=== PATIENT | female | born 1990 ===

== ENCOUNTER 2022-08-11 11:19 | Outpatient (REF) | payer BC, SELFPAY ==
[2022-08-11 12:42] LABS: Influenza A PCR NEGATIVE (Negative); Influenza B PCR NEGATIVE (Negative); Resp Syncy Virus RNA Qual PCR NEGATIVE (Negative); SARS COV2 PCR INHOUSE NEGATIVE (Negative)
== END 2022-08-11 11:20 | disposition home or self-care (01) ==
LOC: HO.LNP 11:19
PROVIDERS: Visit Provider Internal Medicine
DX: Z20.822 Contact with and (suspected) exposure to COVID-19 (principal); R09.89 Other specified symptoms and signs involving the circulatory and respiratory systems
CPT/HCPCS: 0241U

== ENCOUNTER 2022-10-19 23:16 | Emergency (ER) | payer BC, SELFPAY ==
--- NOTE | ~2022-10-19 | XR_ITS ---
Indication: Injury EXAMINATION: Right foot, right ankle. 2. Detail views of the right ankle does not demonstrate acute fracture or dislocation. Foreign bodies overlie the region laterally 3 views of the right foot does not demonstrate evidence for an acute fracture or dislocation. Foreign bodies are noted. These may be overlying the patient. Correlation recommended clinically I cannot exclude that these lie within the soft tissue laterally and inferiorly XR/XR ankle RT min 3V IMPRESSION: No acute fracture or dislocation of the right ankle. No acute fracture or dislocation of the right foot. Foreign bodies are noted.
--- NOTE | ~2022-10-19 | XR_ITS ---
Indication: Injury EXAMINATION: Right foot, right ankle. 2. Detail views of the right ankle does not demonstrate acute fracture or dislocation. Foreign bodies overlie the region laterally 3 views of the right foot does not demonstrate evidence for an acute fracture or dislocation. Foreign bodies are noted. These may be overlying the patient. Correlation recommended clinically I cannot exclude that these lie within the soft tissue laterally and inferiorly XR/XR foot RT min 3V IMPRESSION: No acute fracture or dislocation of the right ankle. No acute fracture or dislocation of the right foot. Foreign bodies are noted.
[2022-10-19 23:30] VITALS: BP 129/69; PULSE 78; RESP 18; TEMP 36.2; O2SAT 95; BMI 35.7
[2022-10-19] MEDS: Acetaminophen 325 MG TABLET 650 MG PO (23:59)
[2022-10-19] MEDS: Ondansetron ODT 4 MG TAB.RAPDIS TRANSLINGU (23:59)
--- OUTSIDE RECORDS SUMMARY | 2022-10-20 00:47 | XMS_ITS | Continuity of Care Document ---
Author Name Unknown Organization [facility] Address [address] [place] [address]- Care Team Providers Care Computer Aided Design Designer Name Role Phone Gino PROPERTY DISPOSAL MANAGER, Tierney M Primary Care Physician Encounter [facility] Date(s): 07/18/22 - [facility] [place] [address]- Attending Physician: Not on Staff, Attending MD Allergies, Adverse Reactions, Alerts Substance Reaction Severity Status Ceclor Active Immunizations Given and Recorded Vaccine Date Status Refusal Reason influenza virus vaccine, inactivated 04/28/11 Kishan rded Human Papillomavirus Vaccine 11/06/06 Recorded Human Papillomavirus Vaccine 04/10/06 Recorded tetanus-diphtheria toxoids (Td) 11/30/01 Recorded Varicella Virus Vaccine 10/05/98 Recorded hepatitis B pediatric vaccine 05/28/97 Recorded hepatitis B pediatric vaccine 03/18/96 Recorded hepatitis B pediatric vaccine 02/14/96 Recorded Measles/Mumps/Rubella Virus Vaccine 09/16/94 Recor ded Measles/Mumps/Rubella Virus Vaccine 12/01/90 Recor ded Polio Vaccine, Live (oldterm) 09/16/94 Recorded Polio Vaccine, Live (oldterm) 03/05/91 Recorded Polio Vaccine, Live (oldterm) 01/03/90 Recorded Polio Vaccine, Live (oldterm) 89 Recorded diphtheria/tetanus/pertussis, acel(DTaP) 09/16/94 Recorded Diphth/Pertussis, Whl Cell/Tet(oldterm) 03/05/91 R ecorded Diphth/Pertussis, Whl Cell/Tet(oldterm) 02/25/90 R ecorded Diphth/Pertussis, Whl Cell/Tet(oldterm) 01/03/90 R ecorded Diphth/Pertussis, Whl Cell/Tet(oldterm) 89 R ecorded Haemophilus B conjugate (HbOC) vaccine 12/01/90 Re corded Haemophilus B conjugate (HbOC) vaccine 09/07/90 Re corded Haemophilus B conjugate (HbOC) vaccine 06/05/90 Re corded Problem List Condition Confirmation Course Effective Dates Status Health St atus Informant Shoulder bursitis Confirmed Active Chronic low back pain Confirmed Active Pain in right knee Confirmed Active PTSD (post-traumatic stress disorder) 1 Confirmed Active Severe obesity (BMI 35.0-39.9) with comorbidity Confirmed Active 1Was in the and deployed to [place] in the past. Social History Social History Type Response Smoking Status Never smoker entered on: 05/12/15 Sex Patient Care team information Care Team Personnel Name: Tierney Christian NP Position: S PCO Associate Professional Member Role: PCP Address: Address: [address] [place] [address]- Care Team Related Persons Name: EMEKA SHELBY Address: [address] [place] [address] Name: KELLEY SHELBY Address: [address] [place] [address] Name: KAYLA HANLEY
--- OUTSIDE RECORDS SUMMARY | 2022-10-20 00:48 | XMS_ITS | Continuity of Care Document ---
Author Name Unknown Organization [facility] Address [address] [place], [place] [id number]- Care Team Providers Care Chain Saw Operator Name Role Phone Gino ENGINE REPAIRER PRODUCTION, Tierney M Primary Care Physician Encounter [facility] Date(s): 08/05/22 - 09/04/22 [facility] [address] [address]- Attending Physician: Aurelio Hill Admitting Physician: AdmAurelio gunter Referring Physician: Admtr, ArJacobo Allergies, Adverse Reactions, Alerts Substance Reaction Severity [...] Associate Professional Member Role: PCP Address: Address: [address] [place] [address]- Care Team Related Persons Name: EMEKA SHELBY Address: [address] [place] [address] Name: KELLEY SHELBY Address: [address] [place] [address] Name: KAYLA HANLEY
== END 2022-10-20 01:05 | disposition left against medical advice (07) ==
PROVIDERS: Emergency Provider Emergency Medicine
DX: M79.671 Pain in right foot (principal); M25.571 Pain in right ankle and joints of right foot
CPT/HCPCS: 73610; 73630; 99282; 99283

== ENCOUNTER 2022-10-20 09:44 | Emergency (ER) | payer BC, SELFPAY ==
--- NOTE | ~2022-10-20 | XR_ITS ---
EXAMINATION: XR FOOT AND CALCANEUS, RIGHT CLINICAL INFORMATION: Localized foreign body. COMPARISON: Right foot radiographs dated 10/19/2022. TECHNIQUE: AP, lateral, and oblique views of the right foot and calcaneus. FINDINGS: A thin radiopaque density is seen overlying of the lateral plantar soft tissues measuring approximately 1.9 x 1.0 cm. It is located approximately 1.4 cm deep to the plantar skin surface and 1.2 cm deep to the lateral surface. There is no acute fracture or dislocation. The joint spaces are unremarkable. The tarsal bones are normally aligned. XR/XR calcaneus RT min 2V IMPRESSION: Thin radiopaque body overlying of the lateral plantar soft tissues of the right foot as detailed above. No acute underlying osseous abnormality.
--- NOTE | ~2022-10-20 | XR_ITS ---
EXAMINATION: XR FOOT AND CALCANEUS, RIGHT CLINICAL INFORMATION: Localized foreign body. COMPARISON: Right foot radiographs dated 10/19/2022. TECHNIQUE: AP, lateral, and oblique views of the right foot and calcaneus. FINDINGS: A thin radiopaque density is seen overlying of the lateral plantar soft tissues measuring approximately 1.9 x 1.0 cm. It is located approximately 1.4 cm deep to the plantar skin surface and 1.2 cm deep to the lateral surface. There is no acute fracture or dislocation. The joint spaces are unremarkable. The tarsal bones are normally aligned. XR/XR foot RT min 3V IMPRESSION: Thin radiopaque body overlying of the lateral plantar soft tissues of the right foot as detailed above. No acute underlying osseous abnormality.
[2022-10-20 10:15] VITALS: BP 120/72; PULSE 75; RESP 18; TEMP 36.9; O2SAT 97; BMI 36.5
[2022-10-20] MEDS: Diphth,Pertus(ACell),Tet Adult 0.5 ML SYRINGE IM (12:37)
[2022-10-20] MEDS: Lidocaine HCl 1 % MPF 5 ML VIAL SUBCUT ×2 (12:39→12:40)
[2022-10-20] MEDS: Ondansetron ODT 4 MG TAB.RAPDIS TRANSLINGU (12:45)
[2022-10-20] MEDS: LORazepam 1 MG TABLET PO (13:15)
[2022-10-20 15:43] VITALS: BP 138/71; PULSE 72; RESP 16; TEMP 36.6; O2SAT 99
[2022-10-20] MEDS: LORazepam 2 MG/ML VIAL 1 MG IM (16:03)
[2022-10-20] MEDS: Lidocaine HCl 1 % MPF 30 ML VIAL SUBCUT (16:04)
--- NOTE | 2022-10-20 17:56 | ED.WOUNDLAC ---
HPI - Wound/Laceration General Chief Complaint: Wound/Laceration Stated Complaint: glass in r foot Time Seen by Provider: 10/20/22 11:31 History of Present Illness HPI narrative: Patient complains of lacerations to right foot sustained about 14 hours ago when she accidentally kicked through a glass window pain, she believes there is a foreign body in the foot from the glass, denies any other injury, no numbness no weakness Related Data Home Medications Medication Instructions Recorded Confirmed hydroxyzine HCl 25 mg tablet 25 mg PO TID PRN anxiety 08/11/22 Previous Rx's Medication Instructions Recorded methylprednisolone 4 mg tablets in See Rx Instructions PO PER PKG DIR 03/17/22 a dose pack (Medrol (Adebayo)) 6 days #21 ea tramadol 50 mg tablet 50 mg PO BID pain 7 days #14 tabs 03/17/22 azithromycin 250 mg tablet 250 mg PO ONCE 5 days #6 tabs 08/11/22 clindamycin HCl 300 mg capsule 300 mg PO Q6H 5 days #20 caps 10/20/22 ibuprofen 600 mg tablet 600 mg PO Q6H PRN pain #20 tabs 10/20/22 oxycodone 5 mg tablet 5 mg PO Q6H PRN pain #14 tabs 10/20/22 oxycodone 5 mg tablet 5 mg PO Q6H PRN pain #14 tabs 10/20/22 Allergies Allergy/AdvReac Type Severity Reaction Status Date / Time cefaclor [From Ceclor] AdvReac Mild Hives Verified 10/19/22 23:30 [facility] Past Medical History Source: nursing notes reviewed Social History Social History Patient Tobacco Use Status: Never used Tobacco Physical Exam Vital Signs: Vital Signs: Last Vital Signs Temp 97.9 F 10/20/22 15:43 Pulse 72 10/20/22 15:43 Resp 16 10/20/22 15:43 BP 138/71 10/20/22 15:43 Pulse Ox 99 10/20/22 15:43 O2 Del Method Room Air 10/20/22 15:43 BMI result Body Mass Index 36.5 General appearance no acute distress Head is normocephalic atraumatic Neck is supple Respiratory no distress Extremities full range of motion x4 Right foot had a laceration on the bottom of the foot, was neurovascular intact distal a laceration was about 1.5 cm, there was no foreign body palpable, all tendon function distal was normal Course Course Course Narrative: Patient received a tetanus shot X-ray did show the foreign body in the heel Procedure note the area was cleansed with Betadine Area was numbed with lidocaine 1% the pre-existing laceration was explored and I could not find the piece a glass I extended the laceration with an 11 blade to create a flap and explored and could not find the foreign body Dr. Santo came over with the ultrasound and was able to locate and remove the foreign body and a piece of glass same shape is what was seen on x-ray was removed I sutured up the flap lack that we had created with 5 0 nylon sutures, dressing was applied and patient ambulated from the emergency department with foreign body removed Medications Administered Discontinued Medications Generic Name Dose Route Start Last Admin Trade Name Freq PRN Reason Stop Dose Admin Clindamycin HCl 300 mg 10/20/22 18:02 10/20/22 18:12 Clindamycin Hcl 300 Mg Capsule PO 10/20/22 18:03 300 mg ONCE ONE Administration Diphtheria/Tetanus/Acell Pertussis 0.5 ml 10/20/22 12:26 10/20/22 12:37 Diphth,Pertus(Acell),Tet Adult 0.5 Ml Syringe IM 10/20/22 12:27 0.5 ml .ONCE ONE Administration Ibuprofen 600 mg 10/20/22 18:00 10/20/22 18:12 Ibuprofen 600 Mg Tablet PO 10/20/22 18:01 600 mg ONCE ONE Administration Lidocaine HCl 5 ml 10/20/22 12:24 10/20/22 12:39 Lidocaine Hcl 1 % Mpf 5 Ml Vial SUBCUT 10/20/22 12:25 5 ml ONCE ONE Administration Lidocaine HCl 5 ml 10/20/22 12:25 10/20/22 12:40 Lidocaine Hcl 1 % Mpf 5 Ml Vial SUBCUT 10/20/22 12:26 5 ml ONCE ONE Administration Lidocaine HCl 30 ml 10/20/22 14:27 10/20/22 16:04 Lidocaine Hcl 1 % Mpf 30 Ml Vial SUBCUT 10/20/22 14:28 30 ml ONCE ONE Administration Protocol Lorazepam 1 mg 10/20/22 12:51 10/20/22 13:15 Lorazepam 1 Mg Tablet PO 10/20/22 12:52 1 mg ONCE ONE Administration Lorazepam 1 mg 10/20/22 15:51 10/20/22 16:03 Lorazepam 2 Mg/Ml Vial IM 10/20/22 15:52 1 mg STAT STA Administration Ondansetron HCl 4 mg 10/20/22 12:41 10/20/22 12:45 Ondansetron Odt 4 Mg Tab.Rapdis TRANSLINGU 10/20/22 12:42 4 mg ONCE ONE Administration Oxycodone HCl 5 mg 10/20/22 18:00 10/20/22 18:11 Oxycodone Hcl Immed Release 5 Mg Tablet PO 10/20/22 18:01 5 mg ONCE ONE Administration Medical Decision Making Attestation Attending Attestation: 32-year-old female presents with foreign body retention and right foot. Reviewed previous imaging and repeated imaging today. She was neurovascularly intact. Paste ultrasound directly visualized obtained foreign body. He did require an incision using 11 blade scalpel. Patient did have moderate amount of pain even despite its local anesthesia. She was neurovascular intact following the procedure. She will be treated with prophylactic antibiotics as well. Procedures Foreign Body Removal Time Out Performed: yes Site: right and foot Description of foreign body: other (glass) Sedation/Analgesia: other (Ativan) Technique: incision made to facilitate removal Confirmed by:: direct visualization and ultrasound Complications: pain Post-procedure exam: awake, alert Neurovascular: normal distal pulse, normal capillary fill, distal light touch sensation intact, distal motor function normal, no signs of compartment syndrome and no change from pre-procedure Discharge Plan Discharge Clinical Impression: Acute foreign body of right foot Patient Disposition: Home, Self-Care Additional Instructions: Dr. Santo was able to remove the foreign body piece of glass from her foot I placed 4 stitches which will need to be removed in 10 days We are using clindamycin antibiotic to help prevent infection Wash the wounds gently every day and cover with dry bandage You got a tetanus shot Follow with your doctor early next week for wound check Return any time for redness swelling discharge from wound pain any signs of infection any worse condition or any concerns Prescriptions: New oxycodone 5 mg tablet 5 mg PO Q6H PRN (Reason: pain) Qty: 14 0RF Rx Instructions: Partial Fill upon patient request. ibuprofen 600 mg tablet 600 mg PO Q6H PRN (Reason: pain) Qty: 20 0RF clindamycin HCl 300 mg capsule 300 mg PO Q6H 5 Days Qty: 20 0RF oxycodone 5 mg tablet 5 mg PO Q6H PRN (Reason: pain) Qty: 14 0RF Rx Instructions: Partial Fill upon patient request. No Action methylprednisolone [Medrol (Adebayo)] 4 mg tablets,dose pack See Rx Instructions PO PER PKG DIR 6 Days Qty: 21 0RF Rx Instructions: PO PER PKG DIR tramadol 50 mg tablet 50 mg PO BID 7 Days Qty: 14 0RF hydroxyzine HCl 25 mg tablet 25 mg PO TID PRN (Reason: anxiety) azithromycin 250 mg tablet 250 mg PO ONCE 5 Days Qty: 6 0RF Rx Instructions: Take 2 tablets today then 1 daily Stand Alone Forms: Work/School Release Interventions: ED Discharge Assessment Last Done: 10/20/22 18:16 Discharge Date/Time: 10/20/22 18:17
[2022-10-20] MEDS: oxyCODONE HCl Immed Release 5 MG TABLET PO (18:11)
[2022-10-20] MEDS: Clindamycin HCL 300 MG CAPSULE PO (18:12)
[2022-10-20] MEDS: Ibuprofen 600 MG TABLET PO (18:12)
== END 2022-10-20 18:17 | disposition home or self-care (01) ==
PROVIDERS: Emergency Provider Emergency Medicine
DX: S90.851A Superficial foreign body, right foot, initial encounter (principal); S90.811A Abrasion, right foot, initial encounter; M79.5 Residual foreign body in soft tissue; W25.XXXA Contact with sharp glass, initial encounter; W45.8XXA Other foreign body or object entering through skin, initial encounter; Y93.9 Activity, unspecified; Y92.9 Unspecified place or not applicable; Y99.9 Unspecified external cause status; Z79.899 Other long term (current) drug therapy; Z23 Encounter for immunization
CPT/HCPCS: 28192; 73630; 73650; 90471; 90715; 96372; 99284; J2060

== ENCOUNTER 2023-11-02 08:10 | Outpatient (AMB) | payer BC, SELFPAY ==
--- OUTSIDE RECORDS SUMMARY | 2023-11-02 08:11 | XMS_ITS | Continuity of Care Document ---
Author Organization [facility] [employer] [facility] Address [address] [place] [id number]- Care Team Providers Care Machine Tool Electrician Name Role Phone Walker JORDAN, Margaret Zamora Primary Care Physici an Encounter [facility] Date(s): 08/09/23 - 08/16/23 [facility] [address] [place] [address]- Attending Physician: Tammie Collins MD Allergies, Adverse Reactions, Alerts Substance Reaction Severity Status Ceclor Active Immunizations Given and Recorded Vaccine Date Status Refusal Reason tetanus/diphtheria/pertussis, acel(Tdap) 1 10/20/22 Recorded influenza virus vaccine, inactivated 04/28/11 Kishan rded [...] B conjugate (HbOC) vaccine 06/05/90 Re corded 1Result Comment: [facility] Medications buPROPion 150 mg/12 hours (SR) oral tablet, extended release 1 tablet = 150 mg, By Mouth, 2 times a day, # 60 tablet, 5 Refills, Maintenance, 07/13/23 7:50:00 EST, ER Tablet, [id number], Partial fill upon patient request if the prescription is for a schedule II opioid drug., 172.5, cm, 01/26/23 9:59:00... Start Date: 07/13/23 Status: Ordered busPIRone 10 mg oral tablet 10 mg, 1, tablet, By Mouth, 2 times a day, # 60 tablet, Refills 5, Tot. Refills 5, Maintenance, 07/13/23 7:54:00 EST, Route to Pharmacy Electronically, [id number], Partial fill upon patient request if the prescription is for a schedule II opio... Start Date: 07/13/23 Status: Ordered ondansetron 4 mg oral tablet 1 tablet = 4 mg, By Mouth, Every 8 hours, # 12 tablet, 0 Refills, Maintenance, 01/06/23 16:51:00 EDT, Tablet, [id number], Partial fill upon patient request if the prescription is for a schedule II opioid drug., 172.5, cm, 11/01/22 13:52:00 EDT... Start Date: 01/06/23 Status: Ordered Problem List Condition Confirmation Course Effective Dates Status Health St atus Informant Shoulder bursitis Confirmed Active Chronic low back pain Confirmed Active KINSEY (generalized anxiety disorder) Confirmed Active Obese class I Confirmed Active Pain in right knee Confirmed Active PTSD (post-traumatic stress disorder) 1 Confirmed Active Severe major depression without psychotic features Confirmed Active 1Was in the and deployed to [place] in the past. Vital Signs Most recent to oldest [Reference Range]: 1 Height 172.5 cm (08/09/23 4:21 PM) Weight 101.8 kg (08/09/23 4:21 PM) Oxygen Saturation [94-100 %] 100 % (08/09/23 4: PM) Pulse Rate [55-90 bpm] 67 bpm (08/09/23 4:21 PM) Body Mass Index [18.5-24.99 kg/m2] 34.21 kg/m2 *>HHI* (08/09/23 4:21 PM) Blood Pressure [90-138/55-84 mm Hg] 123/ 75mm Hg (08/09/23 4:21 PM) Respiratory Rate [16-30 br/min] 16 br/mi n (08/09/23 4:21 PM) Temperature [96.8-100.4 DegF] 97.7 DegF (08/09/23 4:21 PM) Mode of Delivery (Oxygen) Room air (08/09/23 4:21 PM) Blood pressure sites Arm, left (08/09/23 4:21 PM) Temperature Route Temporal (08/09/23 4: PM) Weight Obtained Via Standing scale (08/09/23 4:21 PM) Social History Social History Type Response Smoking Status Never smoker entered on: 05/12/15 Sex Note * Erin Hester: PERFORM, SIGN, VERIFY Event Display: Patient Education/Instruction Authored Date: [id number] [facility] *BMP [facility] Ad[facility] Med Bltn Clinical Summary Name NUNO SANDOVAL Age 32 Years 1990 PCP Walker SAVE ALL OPERATOR, Margaret [id number] Visit Date 08/09/2023 15:59:00 Additional Instructions: Scheduled Appointments?? Future Appointments ?*BMP??Quab??Adlt??Med??Bltn [address],??[place],??[address] ?Phone:??--?Fax:??-- ?Appt. Date:??10/12/2023?7:40 AM ?Scheduled Provider:??Vicente Funk MD Follow-Up Instructions ?? Diagnosis Medications: Please continue your medications until treatment is completed or stopped by your provider. Discuss any questions related to medications with your provider. Medications to Continue with No Changes These medications were not printed or sent to your pharmacy BuPROpion (buPROPion 150 mg/12 hours (SR) oral tablet, extended release) 1 tab(s) Oral twice a day.Refills: 5. Next Dose: BusPIRone (busPIRone 10 mg oral tablet) 1 tab(s) Oral twice a day. Refills: 5. Next Dose: Ondansetron (ondansetron 4 mg oral tablet) 1 tab(s) Oral every 8 hours. Refills: 0. Next Dose: Zolpidem (zolpidem 5 mg oral tablet) 1 tab(s) Oral Daily at Bedtime as needed as needed for insomnia. Refills: 1. Next Dose: Allergy Info:?? Ceclor Medications Given This Visit Future Orders ?No future orders Future Orders ?No future orders Vital Signs Height 172.5 cm Weight 101.8 kg BMI 34.21 kg/m2 Blood Pressure 123 mm Hg/75 mm Hg Temperature 97.7 DegF Pulse Rate 67 bpm Respiratory Rate 16 br/min 02 Sat Mode of Delivery 100 %/Room air You can now view a summary of your hospital visit from the comfort of your home through a free online portal called [employer]. [employer] is a website that allows you to securely view your medical information including discharge summary, medications and follow-up visits. ??You can alsosend a secure electronic message to your doctor???s office to request appointments, renew medications or just ask a question. You can enroll at [email or web address] or register during your next office visit. Disclaimer:?? The information provided is of a general nature and is intended to be used in conjunction with the recommendations and advice of your health care practitioner. ??Every effort has been made to ensure that the information provided is accurate and complete at the time it is provided to you however, as your needs change, or, as new ??information becomes available, different or additional instructions may be required. If you have questions, please consult with your primary care provider or pharmacist, as appropriate. ??This information is not intended to serve as substitution for assessment and evaluation by a qualified health care provider. If you do not have a primary care provider, you may find a [facility] provider by calling [facility] [employer] Link at [phone]. [facility], in keeping with [facility] guidance, no longer requires face masks for staff, patientsor visitors in most situations. Similar to time spent indoors at other locations, there is the chance that you were exposed to respiratory viruses during your time with us (such as flu or COVID-19).? If you develop symptoms concerning for a viral respiratory infection, please seek testing (and treatment if indicated) from your medical provider or home test kit. For information about the plan of care including goals and instructions for your diagnosis, please see the patient education orders section of this document. Patient Education Materials?? The content of this educational material or handout may have been modified, supplemented, or adapted from its original content and format to support your individualized medical care. Patient Care team information Care Team Personnel Name: Margaret Cardoso NP Position: S PCO Associate Professional Member Role: PCP Address: Address: [address] [place] [address] [facility] [place] [address]- Care Team Related Persons Name: EMEKA SHELBY Address: home [address] [place] [id number] Name: KELLEY SHELBY Address: home [address] [place] [id number] Name: MARBELLA SHELBY Name: KAYLA HANLEY
--- OUTSIDE RECORDS SUMMARY | 2023-11-02 08:11 | XMS_ITS | Continuity of Care Document ---
Author Organization [facility] Address [address] [place] [address]- Care Team Providers Care Binder Roller Name Role Phone Margaret Cardoso NP Primary Care Physici an Encounter [facility] Date(s): 05/04/23 - 06/03/23 [facility] [address] [place] [address]- [place] Allergies, Adverse Reactions, Alerts Substance Reaction Severity [...] (HbOC) vaccine 06/05/90 Re corded 1Result Comment: [facility] Medications buPROPion 100 mg/12 hours (SR) oral tablet, extended release 1 tablet, By Mouth, 2 times a day, # 60 Unknown, 0 Refills, Maintenance, 05/08/23 12:18:00 EST, [id number], 172.5, cm, 01/26/23 9:59:00 EDT, Height Start Date: 05/08/23 Status: Ordered busPIRone 5 mg oral tablet 1, tablet, By Mouth, 3 times a day, # 90 tablet, Refills 2, Maintenance, 05/30/23 13:44:00 EST, Route [facility]ically[id number], 172.5, cm, 01/26/23 9:59:00 EDT, Height Start Date: 05/30/23 Status: Ordered ondansetron 4 mg oral tablet [...] Active KINSEY (generalized anxiety disorder) Confirmed Active Pain in right knee Confirmed Active PTSD (post-traumatic stress disorder) 1 Confirmed Active Severe major depression without psychotic features Confirmed Active Severe obesity (BMI 35.0-39.9) with comorbidity Confirmed Active 1Was in the and deployed to [place] in the past. Social History Social History Type Response Smoking Status Never smoker entered on: 05/12/15 Sex Patient Care team information Care Team Personnel Name: Walker JORDAN, aMrgaret Zamora Position: [facility] PCO Associate Professional Member Role: PCP Address: Address: [address] [place] [address] Medical Practice [facility] [place] [address]- Care Team Related Persons Name: EMEKA SHELBY Address: [address] [place] [address] Name: KELLEY SHELBY Address: [address] [place] [address] Name: MARBELLA SHELBY Name: KAYLA HANLEY
--- OUTSIDE RECORDS SUMMARY | 2023-11-02 08:12 | XMS_ITS | Continuity of Care Document ---
Author Organization [facility] Address [address] [place] [address]- Care Team Providers Care Stud Setter Name Role Phone Gino JORDAN, Tierney Little Primary Care Physician Encounter [facility] Date(s): 01/26/23 - 02/02/23 [facility] [address] [place] [address]- Encounter Diagnosis Severe obesity (BMI 35.0-39.9) with comorbidity(Discharge Diagnosis) - 01/26/23 KINSEY (generalized anxiety disorder)(Discharge Diagnosis) - 01/26/23 Severe major depression without psychotic features(Discharge Diagnosis) - 01/26/23 Attending Physician: Vicente Funk MD Allergies, Adverse Reactions, Alerts Substance Reaction [...] (HbOC) vaccine 06/05/90 Re corded 1Result Comment: [place] [facility] Medications buPROPion 100 mg/12 hours (SR) oral tablet, extended release 1 tablet = 100 mg, By Mouth, 2 times a day, # 60 tablet, 2 Refills, Maintenance, 01/26/23 10:22:00 EDT, ER Tablet, [facility]/pharmacy #[id number], Partial fill upon patient request if the prescription is for a schedule II opioid drug., 172.5, cm, 01/26/23 9:59:00... Start Date: 01/26/23 Status: Ordered busPIRone 5 mg oral tablet 5 mg, 1, tablet, By Mouth, 3 times a day, # 90 tablet, Refills 2, Tot. Refills 2, Maintenance, 01/26/23 10:20:00 EDT, Route to Pharmacy Electronically, [facility]/pharmacy #[id number], Partial fill upon patient request if the prescription is for a schedule II opio... Start Date: 01/26/23 Stop Date: 04/26/23 Status: Ordered ondansetron 4 mg oral tablet [...] and deployed to [place] in the past. Diagnosis Diagnosis Type Effective Dates Health Status Clinical Service Informant Severe obesity (BMI 35.0-39.9) with comorbidity Discharge Diagnosis 01/26/23 KINSEY (generalized anxiety disorder) Discharge Diagnosis 01/26/23 Severe major depression without psychotic features Discharge Diagnosis 01/26/23 Vital Signs Most recent to oldest [Reference Range]: 1 Height 172.5 cm (01/26/23 9:59 AM) Social History Social History Type Response Smoking Status Never smoker entered on: 05/12/15 Sex Note * vIa Garcia: PERFORM, SIGN, VERIFY Event Display: Patient Education/Instruction Authored Date: [id number] [facility] *BMP Quab Adlt Med Bltn Clinical Summary Name NUNO SANDOVAL Age 32 Years 1990 PCP PCP Phone Visit Date 01/26/2023 10:00:00 Additional Instructions: Scheduled Appointments?? Future Appointments ?No Future Appointments Scheduled Follow-Up Instructions ?? Diagnosis Medications: Please continue your medications until treatment is completed or stopped by your provider. Discuss any questions related to medications with your provider. Medications to Continue with No Changes These medications were not printed or sent to your pharmacy Ondansetron (ondansetron 4 mg oral tablet) 1 tab(s) Oral every 8 hours. Refills: 0. Next Dose: Allergy Info:?? Ceclor Medications Given This Visit Future Orders ?No future orders Vital Signs Height 172.5 cm Weight BMI Blood Pressure / Temperature Pulse Rate Respiratory Rate 02 Sat Mode of Delivery / You can now view a summary of your hospital visit from the comfort of your home through a free online portal called [employer]. [employer] is a website that allows you to securely view your medical information including discharge summary, medications and follow-up visits. ??You can alsosend a secure electronic message to your doctor???s office to request appointments, renew medications or just ask a question. You can enroll at [email or web address] or register during your next office visit. [...] primary care provider, you may find a [facility] provider by calling [facility] [employer] Link at [phone]. [facility], in keeping with [facility] guidance, no longer requires face masks [...] care. Patient Care team information Care Team Related Persons Name: EMEKA SHELBY Address: home [address] [place] [address] Name: KELLEY SHELBY Address: home [address] [place] [address] Name: KAYLA HANLEY
--- OUTSIDE RECORDS SUMMARY | 2023-11-02 08:12 | XMS_ITS | Continuity of Care Document ---
Author Organization [facility] Address [address] [place] [address]- Care Team Providers Care Tassel Snipper Name Role Phone Gino JORDAN, Tierney Little Primary Care Physician [phone] Encounter [facility] Date(s): 01/10/23 - 02/09/23 [facility] [address] [place], [place] [id number]- [place] Allergies, Adverse Reactions, Alerts Substance Reaction [...] (HbOC) vaccine 06/05/90 Re corded 1Result Comment: [place] [facility] Medications buPROPion 100 mg/12 hours (SR) oral tablet, extended release 1 tablet = 100 mg, By Mouth, 2 times a day, # 60 tablet, 2 Refills, Maintenance, 01/26/23 10:22:00 EDT, ER Tablet, [id number], Partial fill upon patient request if the prescription is for a schedule II opioid drug., 172.5, cm, 01/26/23 9:59:00... Start Date: 01/26/23 Status: Ordered busPIRone 5 mg oral tablet 5 mg, 1, tablet, By Mouth, 3 times a day, # 90 tablet, Refills 2, Tot. Refills 2, Maintenance, 01/26/23 10:20:00 EDT, Route to Pharmacy [facility]ically, [id number], Partial [...] Sex Patient Care team information Care Team Related Persons Name: EMEKA SHELBY Address: [address] [place] [address] Name: KELLEY SHELBY Address: [address] [place] [address] Name: KAYLA HANLEY
--- OUTSIDE RECORDS SUMMARY | 2023-11-02 08:12 | XMS_ITS | Continuity of Care Document ---
Author Organization [facility] Address [address] [place] [address]- Care Team Providers Care Ship Engineer Name Role Phone Gino JORDAN, Tierney Little Primary Care Physician Unav ailable Encounter [facility] Date(s): 01/26/23 - 02/25/23 [facility] [address] [place] [address]- Attending Physician: Aurelio Hill Admitting Physician: AdmAurelio gunter Referring Physician: AdmtrAurelio Allergies, Adverse Reactions, Alerts Substance Reaction Severity [...] (HbOC) vaccine 06/05/90 Re corded 1Result Comment: [place] [facility] Medications buPROPion 100 mg/12 hours (SR) [...] S PCO Associate Professional Member Role: PCP Care Team Related Persons Name: EMEKA SHELBY Address: [address] [place] [address] Name: KELLEY SHELBY Address: home [address] [place] [address] Name: KAYLA HANLEY
--- OUTSIDE RECORDS SUMMARY | 2023-11-02 08:12 | XMS_ITS | Continuity of Care Document ---
Author Organization [facility] Address [address] [place] [address]- Care Team Providers Care Pulp Machine Operator Name Role Phone Tierney Christian NP Primary Care Physician Encounter [facility] Date(s): 11/01/22 - 11/08/22 [facility] [place] [address]- [place] Encounter Diagnosis Laceration of right foot excluding toes(Discharge Diagnosis) - 11/07/22 Attending Physician: Tierney Christian NP Allergies, Adverse Reactions, Alerts Substance Reaction Severity [...] (HbOC) vaccine 06/05/90 Re corded 1Result Comment: [place] [facility] Medications cephalexin monohydrate 500 mg oral capsule 1 capsule = 500 mg, By Mouth, 3 times a day, for 10 days, # 30 capsule, 0 Refills, Acute 11/11/22 14:07:00 EDT, 11/01/22 14:07:00 EDT, Capsule, [id number], Partial fill upon patient request if the prescription is for a schedule II opioid drug.... Start Date: 11/01/22 Stop Date: 11/11/22 Status: Ordered Problem List Condition Confirmation Course [...] Effective Dates Health Status Clinical Service Informant Laceration of right foot excluding toes Discharge Diagnosis 11/07/22 Vital Signs Most recent to oldest [Reference Range]: 1 Height 172.5 cm (11/01/22 1:52 PM) Oxygen Saturation [94-100 %] 99 % (11/01/22 1:52 PM) Pulse Rate [55-90 bpm] 99 bpm *H* (11/01/22 1:52 PM) Blood Pressure [90-138/55-84 mm Hg] 126/ 88mm Hg (11/01/22 1:52 PM) Temperature [96.8-100.4 DegF] 98.6 DegF (11/01/22 1:52 PM) Mode of Delivery (Oxygen) Room air (11/01/22 1:52 PM) Blood pressure sites Arm, right (11/01/22 1:52 PM) Temperature Route Temporal (11/01/22 1:52 PM) Social History Social History Type Response Smoking Status Never smoker entered on: 05/12/15 Sex Note * Iva Garcia: PERFORM, SIGN, VERIFY Event Display: Patient Education/Instruction Authored Date: [id number] [facility] *BMP Quab Adlt Med Bltn Clinical Summary Name NUNO SHELBY Age 32 Years 1990 PCP [phone] Visit Date 11/01/2022 13:47:00 Additional Instructions: Scheduled Appointments?? Future Appointments ?*BMP??Quab??Adlt??Med??Bltn ?[address],??[place],??[address] ?Phone:??--?Fax:??-- ?Appt. Date:??11/07/2022?4:20 PM ?Scheduled Provider:??Tierney Christian NP Follow-Up Instructions ?? Diagnosis Medications: Please continue your medications until treatment is completed or stopped by your provider. Discuss any questions related to medications with your provider. New Medications [facility]/pharmacy #[id number], [address] [place], [place] [id number], [phone] Cephalexin (cephalexin monohydrate 500 mg oral capsule) 1 capsule Oral 3 times a day for 10 Days. Refills: 0. Next Dose: Allergy Info:?? Ceclor Medications Given This Visit Future Orders ?No future orders Vital Signs Height 172.5 cm Weight BMI Blood Pressure 126 mm Hg/88 mm Hg Temperature 98.6 DegF Pulse Rate 99 bpm Respiratory Rate 02 Sat Mode of Delivery 99 %/Room air You can now view a summary of your hospital visit from the comfort of your home through a free online portal called [employer]. [employer] is a website that allows you to securely view your medical information including discharge summary, medications and follow-up visits. ??You can alsosend a secure electronic message to your doctor???s office to request appointments, renew medications or just ask a question. You can enroll at [email or web address] or register during your [...] primary care provider, you may find a [facility] provider by calling [facility] [employer] Direct Link at [phone]. For information about the plan of care [...] Associate Professional Member Role: PCP Address: Address: [address] [place] [address]- Care Team Related Persons Name: EMEKA SHELBY Address: home [address] [place] [address] Name: KELLEY SHELBY Address: home [address] [place] [address] Name: KAYLA HANLEY
--- OUTSIDE RECORDS SUMMARY | 2023-11-02 08:12 | XMS_ITS | Continuity of Care Document ---
Author Organization [facility] Address [address] [place] [address]- Care Team Providers Care Company Laborer Name Role Phone Margaret Cardoso NP Primary Care Physici an Encounter [facility] Date(s): 05/11/23 - 06/10/23 [facility] [address] [place] [address]- Attending Physician: Aurelio Hill Admitting Physician: AdmAurelio [...] (HbOC) vaccine 06/05/90 Re corded 1Result Comment: [place] [facility] Medications buPROPion 100 mg/12 hours (SR) oral tablet, extended release 1 tablet, By Mouth, 2 times a day, # 60 Unknown, 0 Refills, Maintenance, 05/08/23 12:18:00 EST, [id number], 172.5, cm, 01/26/23 9:59:00 EDT, Height Start Date: 05/08/23 Status: Ordered busPIRone 5 mg oral tablet 1, tablet, By Mouth, 3 times a day, # 90 tablet, Refills 2, Maintenance, 05/30/23 13:44:00 EST, Route to [facility]ically[facility], 172.5, cm, 01/26/23 9:59:00 EDT, Height Start [...] information Care Team Personnel Name: Walker JORDAN, Margaret Zamora Position: [facility] PCO Associate Professional Member Role: PCP Address: Address: [address] [place] [address] [place] [address]- Care Team Related Persons Name: EMEKA SHELBY Address: [address] [place] [address] Name: KELLEY SHELBY Address: [address] [place] [address] Name: MARBELLA SHELBY Name: KAYLA HANLEY
--- OUTSIDE RECORDS SUMMARY | 2023-11-02 08:12 | XMS_ITS | Continuity of Care Document ---
Author Organization [facility] Address [address] [place] [address]- Care Team Providers Care Boat Master Name Role Phone Gino JORDAN, Tierney M Primary Care Physician Encounter [facility] Date(s): 10/31/22 - 11/30/22 [facility] [address] [place] [address]- [place] Allergies, Adverse Reactions, Alerts Substance Reaction [...] (HbOC) vaccine 06/05/90 Re corded 1Result Comment: [facility] Problem List Condition Confirmation Course Effective Dates [...] Associate Professional Member Role: PCP Address: Address: [address] [place] [address]- Care Team Related Persons Name: EMEKA SHELBY Address: [address] [place] [address] Name: KELLEY SHELBY Address: [address] [place] [address] Name: KAYLA HANLEY
--- OUTSIDE RECORDS SUMMARY | 2023-11-02 08:12 | XMS_ITS | Continuity of Care Document ---
Author Organization [facility] Address [address] [place] [address]- Care Team Providers Care Assembler Radio And Electrical Name Role Phone Margaret Cardoso NP Primary Care Physici an Encounter [facility] Date(s): 05/08/23 - 06/07/23 [facility] [employer] Adult [facility] [address] [place] [address]- [place] Allergies, Adverse Reactions, Alerts Substance Reaction [...] (HbOC) vaccine 06/05/90 Re corded 1Result Comment: [place] [facility] Medications buPROPion 100 mg/12 hours (SR) oral tablet, extended release 1 tablet, By Mouth, 2 times a day, # 60 Unknown, 0 Refills, Maintenance, 05/08/23 12:18:00 EST, [facility], 172.5, cm, 01/26/23 9:59:00 EDT, Height Start Date: 05/08/23 Status: Ordered busPIRone 5 mg oral tablet 1, tablet, By Mouth, 3 times a day, # 90 tablet, Refills 2, Maintenance, 05/30/23 13:44:00 EST, Route to Pharmacy Electronically, [facility], 172.5, cm, 01/26/23 9:59:00 EDT, Height Start [...] Personnel Name: Walker JORDAN, Margaret Zamora Position: [facility] PCO Associate Professional Member Role: PCP Address: Address: [address] [place] [address] Medical [place] [address]- Care Team Related Persons Name: EMEKA SHELBY Address: [address] [place] [address] Name: KELLEY SHELBY Address: [address] [place] [address] Name: MARBELLA SHELBY Name: KAYLA HANLEY
--- OUTSIDE RECORDS SUMMARY | 2023-11-02 08:12 | XMS_ITS | Continuity of Care Document ---
Author Organization [facility] Address [address] [place] [address]- Care Team Providers Care Meat Counter Clerk Name Role Phone Gino PIGSKIN TRIMMER, Tierney M Primary Care Physician [phone] Encounter [facility] Date(s): 11/07/22 - [facility]/07/[facility] [address] [address]- Attending Physician: Aurelio Hill Admitting Physician: AdmAurelio [...] (HbOC) vaccine 06/05/90 Re corded 1Result Comment: [place] [facility] Problem List Condition Confirmation Course Effective [...] Team Personnel Name: Tierney Christian NP Position: [facility] PCO Associate Professional Member Role: PCP Address: Address: [address] [place] [address]- Care Team Related Persons Name: EMEKA SHELBY Address: [address] [place] [address] Name: KELLEY SHELBY Address: [address] [place] [address] Name: KAYLA HANLEY
--- OUTSIDE RECORDS SUMMARY | 2023-11-02 08:12 | XMS_ITS | Continuity of Care Document ---
Author Organization [facility] Address [address] [place] [address]- Care Team Providers Care Patternmaker Sample Name Role Phone Tierney Christian NP Primary Care Physician Encounter [facility] Date(s): 11/01/22 - 12/07/22 [facility] Adult [facility] [address] [place] [address]- Attending Physician: Tierney Christian NP Allergies, Adverse [...] (HbOC) vaccine 06/05/90 Re corded 1Result Comment: [place] [facility] Problem List Condition Confirmation Course Effective [...] Associate Professional Member Role: PCP Address: Address: [address] [place] [address]- Care Team Related Persons Name: EMEKA SHELBY Address: [address] [place] [address] Name: KELLEY SHELBY Address: [address] [place] [address] Name: KAYLA HANLEY
--- OUTSIDE RECORDS SUMMARY | 2023-11-02 08:12 | XMS_ITS | Continuity of Care Document ---
Author Organization [facility] Address [address] [place] [address]- Care Team Providers Care Mill Hand Name Role Phone Margaret Cardoso NP Primary Care Physici an Encounter [facility] Date(s): 05/30/23 - 06/29/23 [facility] [employer] Adult Medicine [address] [place] [address]- [place] Allergies, Adverse Reactions, Alerts Substance Reaction [...] (HbOC) vaccine 06/05/90 Re corded 1Result Comment: [place] [facility] Medications buPROPion 100 mg/12 hours (SR) oral tablet, extended release 1 tablet, By Mouth, 2 times a day, Please follow up with your prescriber prior to getting more refills, # 60 Unknown, 0 Refills, Maintenance, 06/14/23 13:48:00 EST, [facility]/pharmacy #[id number], 172.5, cm, 01/26/23 9:59:00 EDT, Height Start Date: 06/14/23 Status: Ordered busPIRone 5 mg oral tablet 1, tablet, By Mouth, 3 times a day, # 90 tablet, Refills 2, Maintenance, 05/30/23 13:44:00 EST, Route [facility]acy Electronically, [facility], 172.5, cm, 01/26/23 9:59:00 EDT, Height Start Date: 05/30/23 Status: Ordered ondansetron 4 mg oral tablet 1 tablet = 4 mg, By Mouth, Every 8 hours, # 12 tablet, 0 Refills, Maintenance, 01/06/23 16:51:00 EDT, Tablet, [facility]/pharmacy #[id number], Partial fill upon patient request [...] Personnel Name: Walker JORDAN, Margaret Zamora Position: [facility] PCO Associate Professional Member Role: PCP Address: Address: [address] [place] [address] Medical [place] [address]- Care Team Related Persons Name: EMKEA SHELBY Address: [address] [place] [address] Name: KELLEY SHELBY Address: [address] [place] [address] Name: MARBELLA SHELBY Name: KAYLA HANLEY
--- OUTSIDE RECORDS SUMMARY | 2023-11-02 08:12 | XMS_ITS | Continuity of Care Document ---
Author Organization [facility] Address [address] [place] [address]- Care Team Providers Care Central Office Frame Wirer Name Role Phone Margaret Cardoso NP Primary Care Physici an Encounter [facility] Date(s): 06/13/23 - 07/13/23 [facility] Adult [facility] [address] [place] [address]- [place] Allergies, Adverse Reactions, Alerts Substance Reaction [...] (HbOC) vaccine 06/05/90 Re corded 1Result Comment: [place] Medications buPROPion 150 mg/12 hours (SR) oral tablet, extended release 1 tablet = 150 mg, By Mouth, 2 times a day, # 60 tablet, 5 Refills, Maintenance, 07/13/23 7:50:00 EST, ER Tablet, [facility]/pharmacy #[id number], Partial fill upon patient request if the prescription is for a schedule II opioid drug., 172.5, cm, 01/26/23 9:59:00... Start Date: 07/13/23 Status: Ordered busPIRone 10 mg oral tablet 10 mg, 1, tablet, By Mouth, 2 times a day, # 60 tablet, Refills 5, Tot. Refills 5, Maintenance, 07/13/23 7:54:00 EST, Route to Pharmacy Electronically, [facility]/pharmacy #[id number], Partial fill upon patient request [...] 13:52:00 EDT... Start Date: 01/06/23 Status: Ordered zolpidem 5 mg oral tablet 1 tablet = 5 mg, By Mouth, Daily at bedtime, PRN as needed for insomnia, # 30 tablet, 1 Refills, Acute 08/11/23 7:57:00 EDT, 07/13/23 7:57:00 EST, Tablet, [facility]/pharmacy #[id number], Partial fill upon patient request if the prescription is for a schedule II o... Start Date: 07/13/23 Stop Date: 08/11/23 Status: Ordered Problem List Condition Confirmation Course [...] Personnel Name: Walker JORDAN, Margaret Zamora Position: [facility] PCO Associate Professional Member Role: PCP Address: Address: [address] [place] [address] Medical [place] [address]- [place] Care Team Related Persons Name: EMEKA SHELBY Address: [address] [place] [address] Name: KELLEY SHELBY Address: [address] [place] [address] Name: MARBELLA SHELBY Name: KAYLA HANLEY
--- OUTSIDE RECORDS SUMMARY | 2023-11-02 08:12 | XMS_ITS | Continuity of Care Document ---
Author Organization [facility] Address [address] [place] [address]- Care Team Providers Care Switchgear Repairer Name Role Phone Margaret Cardoso NP Primary Care Physici an Encounter [facility] Date(s): 05/08/23 - 06/07/23 [facility] [employer] Adult Medicine [address] [place] [address]- [place] Allergies, Adverse Reactions, Alerts Substance Reaction [...] (HbOC) vaccine 06/05/90 Re corded 1Result Comment: [place] [facility] Medications buPROPion 100 mg/12 hours (SR) oral tablet, extended release 1 tablet, By Mouth, 2 times a day, # 60 Unknown, 0 Refills, Maintenance, 05/08/23 12:18:00 EST, [facility], 172.5, cm, 01/26/23 9:59:00 EDT, Height Start Date: 05/08/23 Status: Ordered busPIRone 5 mg oral tablet 1, tablet, By Mouth, 3 times a day, # 90 tablet, Refills 2, Maintenance, 05/30/23 13:44:00 EST, Route to Pharmacy Electronically, [facility], 172.5, cm, 01/26/23 9:59:00 EDT, Height Start [...] Personnel Name: Walker JORDAN, Margaret Zamora Position: [facility] PCO Associate Professional Member Role: PCP Address: Address: [address] [place] [address] [place] [address]- Care Team Related Persons Name: EMEKA SHLEBY Address: [address] [place] [address] Name: KELLEY SHELBY Address: [address] [place] [address] Name: MARBELLA SHELBY Name: KAYLA HANLEY
--- OUTSIDE RECORDS SUMMARY | 2023-11-02 08:12 | XMS_ITS | Continuity of Care Document ---
Author Organization [facility] ter Address [address] [place] [address]- Care Team Providers Care Linting Machine Operator Name Role Phone Not on Staff, PCP Primary Care Physician Unavail able Encounter [facility] Date(s): 01/06/23 - 01/06/[address] [address]- Encounter Diagnosis Vasovagal syncope(Final) - 01/06/23 Discharge Disposition: A-D/C Home Attending Physician: Gabriele Navarro MD Admitting Physician: Gabriele Navarro MD Referring Physician: Not on Staff, Referring MD Allergies, Adverse Reactions, Alerts Substance Reaction [...] (HbOC) vaccine 06/05/90 Re corded 1Result Comment: [place] [facility] Medications ondansetron 4 mg oral tablet 1 tablet [...] and deployed to [place] in the past. Results Radiology Reports * Exam Date Time Procedure Performing Provider Status 01/06/23 4:[address] Cervical Spine W/O Contrast Niesha Reyes; Auth (Verified) Notes: (CT Cervical Spine W/O Contrast) Reason For Exam: Neck trauma, dangerous injury mechanism;Other: RESULT: CT Cervical Spine W/O Contrast CT Head/Brain W/O Contrast, CT Cervical Spine W/O Contrast INDICATION: Hx of Present Illness: Pt reports drinking with some cocaine last night, went to have atattoo done today and while getting tattoo she became lightheaded, nauseas with tunnel vision and syncopized striking R side of face - awoke aox4; Reason: Other:; Head trauma, mod-severe; Clinical Question(s): Hematoma; Order Comment: TECHNIQUE: Noncontrast head CT using axial technique was reconstructed in axial and coronal planes.Noncontrast spiral CT through the cervical spine was formatted in 3 planes. Automatic tube modulation was used for the cervical spine and iterative dose reconstruction was used for both the head and cervical spine to optimize scan parameters and image quality. COMPARISON: None. FINDINGS: Chief Controller Tower View Findings, Lines and Tubes: None. BRAIN AND EXTRA-AXIAL SPACES: No parenchymal hemorrhage, midline shift, or mass effect. Lau-white matter differentiation is wellpreserved. No acute infarct. Ventricles, sulci, and basilar cisterns are normal. No white matter lesions. No subarachnoid hemorrhage. No subdural or epidural collection. CALVARIUM, SKULL BASE, AND SOFT TISSUES: No fractures or suspicious bony lesions. The paranasal sinuses and mastoid air cells are clear. Visualized orbits and globes are intact. The extracranial soft tissues are unremarkable. CERVICAL SPINE: No fracture. No acute osseous abnormalities. Normal alignment. No locked or perched facet. Mild multilevel degenerative disc space narrowing andend plate irregularity. OTHER BONES: No acute abnormality. CERVICAL SOFT TISSUES AND LUNG APICES: Normal soft tissues. Visualized lung apices are clear. IMPRESSION: No acute abnormality of the head or cervical spine. WSN: [id number] Ordering Physician: Dinora Ivan Dictated By: David Dixon MD Dictated Date/Time: 01/06/23 4:13 pm Reviewed By: David Dixon MD Signed By: David Dixon MD Signed Date/Time: 01/06/23 4:13 pm Transcribed By: PRIETO Transcribed Date/Time: 01/06/23 4:07 pm * Exam Date Time Procedure Performing Provider Status 01/06/23 4:[address] Head/Brain W/O Contrast Zulema Reyes ly; Auth (Verified) Notes: (CT Head/Brain W/O Contrast) Reason For Exam: Head trauma, mod-severe;Other: RESULT: CT Head/Brain W/O Contrast CT Head/Brain W/O Contrast, CT Cervical Spine W/O Contrast INDICATION: Hx of Present Illness: Pt reports drinking with some cocaine last night, went to have atattoo done today and while getting tattoo she became lightheaded, nauseas with tunnel vision and syncopized striking R side of face - awoke aox4; Reason: Other:; Head trauma, mod-severe; Clinical Question(s): Hematoma; Order Comment: TECHNIQUE: Noncontrast head CT using axial technique was reconstructed in axial and coronal planes.Noncontrast spiral CT through the cervical spine was formatted in 3 planes. Automatic tube modulation was used for the cervical spine and iterative dose reconstruction was used for both the head and cervical spine to optimize scan parameters and image quality. COMPARISON: None. FINDINGS: Chief Controller Tower View Findings, Lines and Tubes: None. BRAIN AND EXTRA-AXIAL SPACES: No parenchymal hemorrhage, midline shift, or mass effect. Lau-white matter differentiation is wellpreserved. No acute infarct. Ventricles, sulci, and basilar cisterns are normal. No white matter lesions. No subarachnoid hemorrhage. No subdural or epidural collection. CALVARIUM, SKULL BASE, AND SOFT TISSUES: No fractures or suspicious bony lesions. The paranasal sinuses and mastoid air cells are clear. Visualized orbits and globes are intact. The extracranial soft tissues are unremarkable. CERVICAL SPINE: No fracture. No acute osseous abnormalities. Normal alignment. No locked or perched facet. Mild multilevel degenerative disc space narrowing andend plate irregularity. OTHER BONES: No acute abnormality. CERVICAL SOFT TISSUES AND LUNG APICES: Normal soft tissues. Visualized lung apices are clear. IMPRESSION: No acute abnormality of the head or cervical spine. WSN: [id number] Ordering Physician: Dinora Ivan Dictated By: David Dixon MD Dictated Date/Time: 01/06/23 4:13 pm Reviewed By: David Dixon MD Signed By: David Dixon MD Signed Date/Time: 01/06/23 4:13 pm Transcribed By: PRIETO Transcribed Date/Time: 01/06/23 4:07 pm Vital Signs Most recent to oldest [Reference Range]: 1 2 Oxygen Saturation [94-100 %] 100 % (01/06/23 5:48 PM) 100 % (01/06/23 2:28 PM) Pulse Rate [55-90 bpm] 70 bpm (01/06/23 5:48 PM) 85 bpm (01/06/23 2:28 PM) Blood Pressure [90-138/55-84 mm Hg] 135/ 73mm Hg (01/06/23 5:48 PM) 144/73mm Hg *H* (01/06/23 2:28 PM) Respiratory Rate [16-30 br/min] 20 br/mi n (01/06/23 5:48 PM) 17 br/min (01/06/23 2:28 PM) Temperature [96.8-100.4 DegF] 98.3 DegF (01/06/23 5:48 PM) 97.7 DegF (01/06/23 2:28 PM) Mode of Delivery (Oxygen) Room air (01/06/23 5:48 PM) Room air (01/06/23 2:28 PM) Blood pressure sites Arm, left (01/06/23 5:48 PM) Arm, right (01/06/23 2:28 PM) Temperature Route Oral (01/06/23 5:48 PM) Oral (01/06/23 2:28 PM) Social History Social History Type Response Smoking Status Never smoker entered on: 05/12/15 Sex EKG study * Event Display: ECG 12-Lead Authored Date: [id number] Please click on pdf link to open report * Event Display: ECG 12-Lead Authored Date: [id number] Ventricular Rate: 68 BPM Atrial Rate: 68 BPM P-R Interval: 190 ms QRS Duration: 92 ms Q-T Interval: 428 ms QTC Calculation(Bazett): 455 ms P Redford: 58 degrees R Redford: 15 degrees T Redford: 80 degrees Normal sinus rhythm with sinus arrhythmia Normal ECG No previous ECGs available Confirmed by MONET KURTZ ([id number]) on 01/06/2023 4:22:14 PM [place]: MONET KURTZ Note * Dinora Ivan MD: PERFORM Event Display: Patient Education Leaflets Authored Date: [id number] Fainting: Vagal Reaction ?? [id number] Fainting: Vagal Reaction Fainting (syncope) is a temporary loss of consciousness. It???s also called passing out. It occurs when blood flow to the brain is reduced. Your healthcare provider believes that your fainting was because of a vagal reaction. This is usually not a sign of serious disease. A vagal reaction causes your pulse to slow down or the blood vessels to expand. This causes your blood pressure to fall. Less blood to your brain if you are standing or sitting. That results in dizziness, near-fainting, or fainting. Lying down and raising (elevating) your feet often stops the reaction. Fainting can occur during sudden fear, severe pain, emotional stress, overexertion, overheating. Hunger, nausea or vomiting, prolonged standing, or standing up after sitting or lying for a long time can also cause it. Home care Follow these steps when caring for yourself at home: ??? Get plenty of rest. Go back to your normalactivities as soon as you are feeling back to normal. ??? Stay hydrated and avoid skipping meals. ??? If you feel lightheaded or dizzy, lie down right away and elevate your legs. ?? Follow-up care Follow up with your healthcare provider, or as advised. Call 911 Call 911 if any of the following occur: ??? Another fainting spell that???s not explained by the common causes listed above ??? Pain in your chest, arm, neck, jaw, back, or abdomen ??? Shortness of breath ??? Severe headache or seizure ??? Your heart beats very rapidly, very slowly, or irregularly (palpitations) ?? Last Reviewed Date: 2021 ?? [id number] The [employer]. All rights reserved. This information is not intended as a substitute for professional medical care. Always follow your healthcare professional's instructions. ?? Patient Care team information Care Team Personnel Name: Not on Staff, PCP Position: [facility] Physician (General Medicine) Member Role: PCP Name: Leana Bennett Position: [facility] ED TA [facility] Member Role: Concrete Finisher Name: Edwige Roche RN Position: [facility] ED RN W/OE and Tasks Member Role: Patient Care Provider Name: Dinora Ivan MD Position: [facility] Resident Member Role: ED Resident Address: Address: [address] [place] [address]- Name: Gabriele Navarro MD Position: [facility] ED Medicine MD Member Role: Admitting Physician Address: Address: [address] [place] [address]- Care Team Related Persons Name: EMEKA SHELBY Address: home [address] [place] [address] Name: KELLEY SHELBY Address: home [address] [place] [address] Name: KAYLA HANLEY
--- OUTSIDE RECORDS SUMMARY | 2023-11-02 08:13 | XMS_ITS | Continuity of Care Document ---
Author Organization [facility] Address [address] [place] [address]- Care Team Providers Care Technical Operator Name Role Phone Margaret Cardoso NP Primary Care Physici an Encounter [facility] Date(s): 05/08/23 - 06/10/23 [facility] [address] [place] [address]- Attending Physician: Vicente Funk MD Allergies, Adverse [...] (HbOC) vaccine 06/05/90 Re corded 1Result Comment: [place] [facility] Medications buPROPion 100 mg/12 hours (SR) oral tablet, extended release 1 tablet, By Mouth, 2 times a day, # 60 Unknown, 0 Refills, Maintenance, 05/08/23 12:18:00 EST, [id number], 172.5, cm, 01/26/23 9:59:00 EDT, Height Start Date: 05/08/23 Status: Ordered busPIRone 5 mg oral tablet 1, tablet, By Mouth, 3 times a day, # 90 tablet, Refills 2, Maintenance, 05/30/23 13:44:00 EST, Route to Pharmacy Electronically, [id number], 172.5, cm, 01/26/23 9:59:00 EDT, Height Start [...] Personnel Name: Walker JORDAN, Margaret Zamora Position: [facility] PCO Associate Professional Member Role: PCP Address: Address: [address] [facility] [place] [address]- Care Team Related Persons Name: EMEKA SHELBY Address: home [address] [place] [address] Name: KELLEY SHELBY Address: home [address] [place] [address] Name: MARBELLA SHELBY Name: KAYLA HANLEY
--- OUTSIDE RECORDS SUMMARY | 2023-11-02 08:13 | XMS_ITS | Continuity of Care Document ---
Author Organization [facility] Address [address] [place] [address]- Care Team Providers Care Shearing Shed Hand Name Role Phone Gino JORDAN, Tierney Little Primary Care Physician Unav ailable Encounter [facility] Date(s): 01/28/23 - 02/27/23 [facility] [address] [place] [address]- [place] Allergies, Adverse Reactions, Alerts Substance Reaction [...] (HbOC) vaccine 06/05/90 Re corded 1Result Comment: [place] [facility] Medications buPROPion 100 mg/12 hours (SR) [...] Persons Name: EMEKA SHELBY Address: [address] [place] [address] Name: KELLEY SHELBY Address: [address] [place] [address] Name: KAYLA HANLEY
--- OUTSIDE RECORDS SUMMARY | 2023-11-02 08:13 | XMS_ITS | Continuity of Care Document ---
Author Organization [facility] Address [address] [place] [address]- Care Team Providers Care Top Printing Press Operator Name Role Phone Gino JORDAN, Tierney Little Primary Care Physician Unav ailable Encounter [facility] Date(s): 01/24/23 - 02/23/23 [facility] [address] [place] [address]- [place] Allergies, Adverse Reactions, Alerts Substance Reaction [...] (HbOC) vaccine 06/05/90 Re corded 1Result Comment: [place] [facility] Medications buPROPion 100 mg/12 hours (SR) [...] Team Personnel Name: Tierney Christian NP Position: [facility] PCO Associate Professional Member Role: PCP Care Team Related Persons Name: EMEKA SHELBY Address: [address] [place] [address] Name: KELLEY SHELBY Address: [address] [place] [address] Name: KAYLA HANLEY
--- OUTSIDE RECORDS SUMMARY | 2023-11-02 08:13 | XMS_ITS | Continuity of Care Document ---
Author Organization [facility] Address [address] [place] [address]- Care Team Providers Care Refund Clerk Name Role Phone Walker JORDAN, Margaret Zamora Primary Care Physici an Encounter [facility] Date(s): 08/09/23 - 09/08/23 [facility] [address] [place] [address]- Attending Physician: Aurelio Hill Admitting Physician: AdmAurelio [...] (HbOC) vaccine 06/05/90 Re corded 1Result Comment: [place] [facility] Medications buPROPion 150 mg/12 hours (SR) oral tablet, extended release 1 tablet = 150 mg, By Mouth, 2 times a day, # 60 tablet, 5 Refills, Maintenance, 07/13/23 7:50:00 EST, ER Tablet, [facility]/pharmacy #[id number], Partial fill upon patient request if the prescription is for a schedule II opioid drug., 172.5, cm, 01/26/23 9:59:00... Start Date: 07/13/23 Status: Ordered busPIRone 10 mg oral tablet 10 mg, 1, tablet, By Mouth, 2 times a day, # 60 tablet, Refills 5, Tot. Refills 5, Maintenance, 07/13/23 7:54:00 EST, Route to Pharmacy Electronically, [facility]/pharmacy #[id number], Partial fill upon patient request if [...] Personnel Name: Walker JORDAN, Margaret Zamora Position: [facility] PCO Associate Professional Member Role: PCP Address: Address: [address] [place] [address] [place] [address]- [place] Care Team Related Persons Name: EMEKA SHELBY Address: home [address] [place] [address] Name: KELLEY SHELBY Address: [address] [place] [address] Name: MARBELLA SHELBY Name: KAYLA HANLEY
--- OUTSIDE RECORDS SUMMARY | 2023-11-02 08:13 | XMS_ITS | Continuity of Care Document ---
Author Organization [facility] Address [address] [place] [address]- Care Team Providers Care Cloth Worker Name Role Phone Walker JORDAN, Margaret Zamora Primary Care Physici an Encounter [facility] Date(s): 10/12/23 - 10/19/23 [facility] [address] [place] [address]- [place] Encounter Diagnosis KINSEY (generalized anxiety disorder)(Discharge Diagnosis) - 10/12/23 Insomnia(Discharge Diagnosis) - 10/12/23 MDD (recurrent major depressive disorder) in remission(Discharge Diagnosis) - 10/12/23 Attending Physician: Vicente Funk MD Allergies, Adverse [...] (HbOC) vaccine 06/05/90 Re corded 1Result Comment: [place] [facility] Medications buPROPion 150 mg/12 hours (SR) oral tablet, extended release 1 tablet = 150 mg, By Mouth, 2 times a day, # 60 tablet, 5 Refills, Maintenance, 10/12/23 7:44:00 EDT, ER Tablet, [facility]/pharmacy #[id number], Partial fill upon patient request if the prescription is for a schedule II opioid drug., 172.5, cm, 08/09/23 16:21:00... Start Date: 10/12/23 Status: Ordered busPIRone 10 mg oral tablet 10 mg, 1, tablet, By Mouth, 2 times a day, # 60 tablet, Refills 5, Tot. Refills 5, Maintenance, 10/12/23 7:44:00 EDT, Route to Pharmacy Electronically, [facility]/pharmacy #[id number], Partial fill upon patient request if the prescription is for a schedule II opio... 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 Diagnosis Diagnosis Type Effective Dates Health Status Clinical Service Informant KINSEY (generalized anxiety disorder) Discharge Diagnosis 10/12/23 Insomnia Discharge Diagnosis 10/12/23 MDD (recurrent major depressive disorder) in remission Discharge Diagnosis 10/12/23 Social History Social History Type Response Smoking Status Never smoker entered on: 05/12/15 Sex Note * Leana Meyer: PERFORM Event Display: Patient Education/Instruction Authored Date: [id number] Ambulatory Adult Visit Summary [facility] [address] [address] Name: NUNO Benedict : 1990?? Visit: 10/12/2023 07:40?? Ambulatory Visit Instructions ?? Your Care Team Primary Care Provider Walker JORDAN, Margaret Zamora? This Visit Provider Vicente Funk MD Your Diagnosis KINSEY (generalized anxiety disorder) Insomnia MDD (recurrent major depressive disorder) in remission Medications The list below reflects the information in our records and provided by you today along with any changes made during this visit. Please continue your medications until treatment is completed or stopped by your provider. If this is different from the information you have or there are other questions,please contact the prescribing provider. What How Much When Instructions Unchanged BuPROpion (buPROPion 150 mg/ 12 hours (SR) oral tablet, extended release) 1 tab(s) Oral Twice a day Pickup at [facility]/pharmacy #[id number] Unchanged BusPIRone (busPIRone 10 mg oral tablet) 1 tab(s) Oral Twice a day Pickup at [facility]/pharmacy #[id number] Unchanged Ondansetron (ondansetron 4 mg oral tablet) 1 tab(s) Oral Every 8 hours Pharmacy Information [facility]/pharmacy #[id number]: [address], [place] [id number] [phone] Medications and Immunizations Administered Medications Given During Visit No medications given during this visit.?? Allergies (NKA means No Known Allergies) Ceclor Common Emergency Awareness Tips IS IT A STROKE? Act FAST and Check for these signs: FACE Does the face look uneven? ARM Does one arm drift down? SPEECH Does their speech sound strange? TIME Call at any sign of stroke ?? Heart Attack Signs Chest discomfort: Most heart attacks involve discomfort in the center of the chest and lasts more than a few minutes, or goes away and comes back. It can feel like uncomfortable pressure, squeezing, fullness or pain. Discomfort in upper body: Symptoms can include pain or discomfort in one or both arms, back, neck, jaw or stomach. Shortness of breath: With or without discomfort. Other signs: Breaking out in a cold sweat, nausea, or lightheaded. Remember, MINUTES DO MATTER. If you experience any of these heart attack warning signs, call to get immediate medical attention! ?? Smoking can increase your chances of developing chronic health problems and can cause harmful effects to other family members in your house. If you smoke, you are strongly encouraged to quit. Please call [facility] at [phone] or 1-564-113Innotas ([phone]) or log in to [email or web address] for referrals to smoking cessation programs. ?? The National Suicide Prevention Hotline is available 12/12 if you or someone you know needs to find a reason to keep living. By calling 9-623-178-tidy (9659) you'll be connected to a skilled, trained counselor at a crisis center in your area. [facility] [employer] Portal You can view and manage your care through the patient portal or by using a health care dov of your choosing. [employer] is a website that allows you to securely view your medical information including your hospital discharge summary, office visit summaries, medications and follow-up visits. You can also request appointments, renew medications, and request access to your medical information using a health care dov of your choosing, or just ask a question. You can enroll at [email or web address] or register during your next office visit. [facility], in keeping with [facility] guidance, no longer requires face masks for staff, patientsor visitors in most situations. Similiar to time spent indoors at other locations, there is the chance that you were exposed to repiratory viruses during your time with us (such as flu or COVID-19). If you develop symptoms concerning for a viral respiratory infection, please seek testing (and treatment if indicated) from your medical provider or home test kit. ?? Disclaimer: The information provided is of a general nature and is intended to be used in conjunction with the recommendations and advice of your health care practitioner. Every effort has been made to ensure that the information provided is accurate and complete at the time it is provided to you however, as your needs change, or, as new information becomes available, different or additional instructions may be required. ?? If you have questions, please consult with your primary care provider or pharmacist, as appropriate. This information is not intended to serve as substitution for assessment and evaluation by a qualified health care provider. If you do not have a primary care provider, you may find a [facility] provider by calling [facility] Linkage at [phone]. Patient Care team information Care Team Personnel Name: Walker JORDAN, Margaret Zamora Position: [facility] PCO Associate Professional Member Role: PCP Address: Address: [address] [place] [address] [facility] [place] [address]- Care Team Related Persons Name: EMEKA SHELBY Address: [address] [place] [address] Name: KELLEY SHELBY Address: [address] [place] [address] Name: MARBELLA SHELBY Name: KAYLA HANLEY
--- OUTSIDE RECORDS SUMMARY | 2023-11-02 08:13 | XMS_ITS | Continuity of Care Document ---
Author Organization [facility] Address [address] [place] [address]- Care Team Providers Care Bottom Man Name Role Phone Margaret Cardoso NP Primary Care Physici an Encounter [facility] Date(s): 07/13/23 - 07/20/23 [facility] [address] [place] [address]- Encounter Diagnosis KINSEY (generalized anxiety disorder)(Discharge Diagnosis) - 07/13/23 Severe major depression without psychotic features(Discharge Diagnosis) - 07/13/23 Insomnia(Discharge Diagnosis) - 07/13/23 Attending Physician: Vicente Funk MD Allergies, Adverse [...] Vaccine, Live (oldterm) 89 Recorded diphtheria/tetanus/pertussis, acel(DTaP) 4/28/95 Recorded Diphth/Pertussis, Whl Cell/Tet(oldterm) 03/05/91 R ecorded Diphth/Pertussis, Whl Cell/Tet(oldterm) 02/25/90 R ecorded Diphth/Pertussis, Whl Cell/Tet(oldterm) 01/03/90 R ecorded Diphth/Pertussis, Whl Cell/Tet(oldterm) 89 R ecorded Haemophilus B conjugate (HbOC) vaccine 12/01/90 Re corded Haemophilus B conjugate (HbOC) vaccine 09/07/90 Re corded Haemophilus B conjugate (HbOC) vaccine 06/05/90 Re corded 1Result Comment: [facility] buPROPion 150 mg/12 hours (SR) oral tablet, extended release 1 tablet = 150 mg, By Mouth, 2 times a day, # 60 tablet, 5 Refills, Maintenance, 07/13/23 7:50:00 EST, ER Tablet, [facility]/pharmacy #[id number], Partial fill upon patient request if the prescription is for a schedule II opioid drug., 172.5, cm, 01/26/23 9:59:00... Start Date: 07/13/23 Status: Ordered busPIRone 10 mg oral tablet 10 mg, 1, tablet, By Mouth, 2 times a day, # 60 tablet, Refills 5, Tot. Refills 5, Maintenance, 07/13/23 7:54:00 EST, Route to Pharmacy Electronically, [facility]/pharmacy #[id number], Partial fill upon patient request if the prescription is for a schedule II opio... Start Date: 07/13/23 Status: Ordered ondansetron 4 mg oral tablet 1 tablet = 4 mg, By Mouth, Every 8 hours, # 12 tablet, 0 Refills, Maintenance, 01/06/23 16:51:00 EDT, Tablet, [facility]/pharmacy #[id number], Partial fill upon patient request if the prescription is for a schedule II opioid drug., 172.5, cm, 11/01/22 13:52:00 EDT... Start Date: 01/06/23 Status: Ordered zolpidem 5 mg oral tablet 1 tablet = 5 mg, By Mouth, Daily at bedtime, PRN as needed for insomnia, # 30 tablet, 1 Refills, Acute 08/11/23 7:57:00 EDT, 07/13/23 7:57:00 EST, Tablet, [id number], Partial fill upon patient [...] Informant KINSEY (generalized anxiety disorder) Discharge Diagnosis 07/13/23 Severe major depression without psychotic features Discharge Diagnosis 07/13/23 Insomnia Discharge Diagnosis 07/13/23 Social History Social History Type Response Smoking Status Never smoker entered on: 05/12/15 Sex Note * Iva Garcia: PERFORM, SIGN, VERIFY Event Display: Patient Education/Instruction Authored Date: [id number] [facility] *BMP [facility] Clinical Summary Name NUNO SANDOVAL Age 32 Years 1990 PCP Walker JORDAN, Margaret Zamora PCP Visit Date 07/13/2023 07:40:00 Additional Instructions: Scheduled Appointments?? Future Appointments ?No Future Appointments Scheduled Follow-Up Instructions ?? Diagnosis Generalized anxiety disorder; Major depressive disorder, single episode, severe without psychotic features; Insomnia, unspecified Medications: Please continue your medications until treatment is completed or stopped by your provider. Discuss any questions related to medications with your provider. New Medications [id number], [address], [place] [id number], [phone] Zolpidem (zolpidem 5 mg oral tablet) 1 tab(s) Oral Daily at Bedtime as needed as needed for insomnia. Refills: 1. Next Dose: Medications to Continue Taking That Have Changed [id number], [address], [place] [id number], [phone] - BuPROpion (buPROPion 150 mg/12 hours (SR) oral tablet, extended release) 1 tab(s) Oral twice a day. Refills: 5. Next Dose: - BusPIRone (busPIRone 10 mg oral tablet) 1 tab(s) Oral twice a day. Refills: 5. Next Dose: Medications to Continue with No Changes These medications were not printed or sent to your pharmacy Ondansetron (ondansetron 4 mg oral tablet) 1 tab(s) Oral every 8 hours. Refills: 0. Next Dose: Allergy Info:?? Ceclor Medications Given This Visit Future Orders ?No future orders Vital Signs Height Weight BMI Blood Pressure / Temperature Pulse Rate Respiratory Rate 02 Sat Mode of Delivery / You can now view a summary of your hospital visit from the comfort of your home through a free online portal called [employer]. [employer] is a website that allows you to securely view your medical information including discharge summary, medications and follow-up visits. ??You can alsosend a secure electronic message to your doctor???s office to request appointments, renew medications or just ask a question. You can enroll at [email or web address] or register during your next [...] primary care provider, you may find a [facility] provider by calling [facility] Link at [phone]. [facility], in keeping with [facility] guidance, no longer requires face masks [...] Personnel Name: Walker JORDAN, Margaret Zamora Position: [facility] PCO Associate Professional Member Role: PCP Address: Address: [address] [facility] [place] [address]- [place] Care Team Related Persons Name: EMEKA SHELBY Address: [address] [place] [address] Name: KELLEY SHELBY Address: [address] [place] [address] Name: MARBELLA SHELBY Name: KAYLA HANLEY
--- OUTSIDE RECORDS SUMMARY | 2023-11-02 08:13 | XMS_ITS | Continuity of Care Document ---
Author Organization [facility] Address [address] [place] [id number]- Care Team Providers Care Cemetery Counselor Name Role Phone Walker JORDAN, Margaret Zamora Primary Care Physici an Encounter [facility] Date(s): 08/08/23 - 09/07/23 [employer] [facility] [address] [place] [id number] [place] Allergies, Adverse Reactions, Alerts Substance Reaction [...] (HbOC) vaccine 06/05/90 Re corded 1Result Comment: [facility]ations buPROPion 150 mg/12 hours (SR) oral tablet, extended release 1 tablet = 150 mg, By Mouth, 2 times a day, # 60 tablet, 5 Refills, Maintenance, 07/13/23 7:50:00 EST, ER Tablet, [facility]/pharmacy #[id number], Partial fill upon patient request if the prescription is for a schedule II opioid drug., 172.5, cm, 01/26/23 9:59:00... Start Date: 07/13/23 Status: Ordered busPIRone 10 mg oral tablet 10 mg, 1, tablet, By Mouth, 2 times a day, # 60 tablet, Refills 5, Tot. Refills 5, Maintenance, 07/13/23 7:54:00 EST, Route to Pharmacy Electronically, [facility]/pharmacy #[id number], Partial fill upon patient request if the prescription is for a schedule II opio... Start Date: 07/13/23 Status: Ordered ondansetron 4 mg oral tablet 1 tablet = 4 mg, By Mouth, Every 8 hours, # 12 tablet, 0 Refills, Maintenance, 01/06/23 16:51:00 EDT, Tablet, [facility]/pharmacy #[id number], Partial fill upon [...] Personnel Name: Walker JORDAN, Margaret Zamora Position: [facility] PCO Associate Professional Member Role: PCP Address: Address: [address] [place] [address] [place] [address]- Care Team Related Persons Name: EMEKA SHELBY Address: [address] [place] [address] Name: KELLEY SHELBY Address: [address] [place] [address] Name: MARBELLA SHELBY Name: KAYLA HANLEY
[2023-11-02 08:15] VITALS: BP 122/80; PULSE 74; TEMP 36.7; O2SAT 98; BMI 30.6
--- NOTE | 2023-11-02 08:15 | AM.OFFWIN_ITS ---
Intake Vital Signs 11/02/23 08:15 Height 5 ft 8 in Weight 201 lb BMI 30.6 BP 122/80 Blood Pressure Location Rt brachial Position Sitting Pulse 74 Pulse Source Pulse Oximeter Temp 98.0 F Temp Source Temporal Artery Scan Pulse Oximetry (%) 98 Oxygen Delivery Method Room Air Intake Visit Reasons: EP LT side chest pain Intake Note: pt is here for left side pain, chest pain sine yesterday. Patient Tobacco Use Status: Never used Tobacco Allergies cefaclor [From Ceclor] Adverse Reaction (Mild, Verified 11/02/23 08:22) Hives Do you need a note to return to daycare/school/sports/work: Yes HPI HPI Comments History of Present Illness Details 33 y/o female patient who presents to [facility] in clinic with c/o left sided chest wall pain since yesterday. 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 Denies SOB, wheezing or pallitations. [facility] Social History Patient Tobacco Use Status: Never used Tobacco Review of Systems Const All systems reviewed & are unremarkable except as noted in HPI and below Physical Exam Vital Signs: Last Vital Signs Temp 98.0 F 11/02/23 08:15 Pulse 74 11/02/23 08:15 BP 122/80 11/02/23 08:15 Pulse Ox 98 11/02/23 08:15 Oxygen Delivery Method Room Air 11/02/23 08:15 BMI result Body Mass Index 30.6 Const General: comfortable and no acute distress Orientation/consciousness: patient oriented x3 Chest Other: Pt very muscular with well defined chest wall muscles. Chest palpation & inspection: normal inspection of the chest, localized rib tenderness with anteroposterior compression (Left sided chest wall tenderness to palpation), no masses and tenderness rib (Left sided chest wall - ribs 6-7th) Resp Effort & Inspection: normal respiratory effort and able to speak in complete sentences Auscultation: clear to auscultation bilaterally, no crackles, no rales, no rhonchi and no wheezes Cardio Rate: regular rate Rhythm: regular rhythm Neuro General: patient oriented x3 Psych Speech and movement: Normal speech and movement present Assessment & Plan Assessment & Plan (1) Contusion of left chest wall: Code(s): S20.212A - Contusion of left front wall of thorax, initial encounter Qualifiers: Encounter type: initial encounter Qualified Code(s): S20.212A - Contusion of left front wall of thorax, initial encounter Plan: - Acetaminophen or naproxen for pain relief - Wrapped chest with 2 Hansel bandages for compression - IceHot - Rest - Chest Xray Orders: Orders XR chest 2V Today S20.212A - Contusion of left front wall of thorax, initial encounter Medications: New cyclobenzaprine 10 mg PO BEDTIME 20 tabs 0RF S20.212A - Contusion of left front wall of thorax, initial encounter Coding Level of Care Code Est Pt Level 4 (00620) Diagnoses Contusion of left chest wall, initial encounter S20.212A Encounter type: initial encounter Time Spent (min) 20
== END 2023-11-02 10:15 | disposition home or self-care (01) ==
PROVIDERS: Visit Provider Nurse Practitioner Family
DX: S20.212A Contusion of left front wall of thorax, initial encounter (principal)
CPT/HCPCS: 99214

== ENCOUNTER 2023-11-02 08:57 | Outpatient (REF) | payer BC, SELFPAY ==
--- NOTE | ~2023-11-02 | XR_ITS ---
EXAMINATION: XR CHEST CLINICAL INFORMATION: Contusion left frontal wall of the thorax COMPARISON: None available. TECHNIQUE: 2 views of the chest were obtained. FINDINGS: Slight bilateral perihilar prominence nonspecific may reflect infectious/inflammatory etiology versus lymphadenopathy. No pneumothorax. Trachea is midline. Cardiac mediastinal silhouette is not enlarged. No large pleural effusion. Osseous structures are intact. Soft tissues are unremarkable. XR/XR chest 2V IMPRESSION: Slight bilateral perihilar prominence nonspecific may reflect infectious/inflammatory etiology versus lymphadenopathy.
== END 2023-11-02 08:58 | disposition home or self-care (01) ==
LOC: HO.HMGCX 08:57
PROVIDERS: Visit Provider Nurse Practitioner Family
DX: S20.212A Contusion of left front wall of thorax, initial encounter (principal)
CPT/HCPCS: 71046